=== PATIENT | female | born 1995 | race Caucasian/White ===

== ENCOUNTER 2024-07-24 10:48 | Outpatient (CLI) | payer MEDICAID, SELFPAY ==
--- NOTE | 2024-07-24 11:00 | US_ITS ---
PROCEDURE: US TRANSVAGINAL CLINICAL INDICATION: IUD placement check COMPARISON: No exams were available for comparison FINDINGS: Transvaginal sonographic images of the pelvis were obtained. UTERUS: 7.4cm x 4.5cmx 4.0cm anteverted with a combined endometrial thickness of thin. There is an IUD within the uterine cavity in the correct position. LEFT OVARY: 2.2cmx1.6 cmx1.8cm with a volume of 3.4ml. There appears to be a collapsing corpus luteum in the left ovary measuring 1.5 cm x 0.9 cm x 1.5 cm. There are several smaller peripheral follicles. RIGHT OVARY: 2.2cmx 2.0cmx2.3cm with a volume of 5.2ml. There are multiple small peripheral follicles giving the ovary a polycystic appearance. Both ovaries are seen and appear normal. Doppler flow to both ovaries are seen. There is no fluid in the cul-de-sac. IMPRESSION: 1. Anteverted uterus normal in shape and size the endometrium is thin. There is an IUD within the uterine cavity in the correct position. 2. Both ovaries are seen and appear somewhat polycystic. The left ovary contains a corpus luteum. The right ovary has more peripheral follicles. 3. No fluid in the cul-de-sac. Dictated by: Samuel Land MD 07/24/2024 15:13 Samuel Land MD in OV 07/24/2024 15:13
== END 2024-07-24 23:59 | disposition home or self-care (01) ==
LOC: RAD 10:49
PROVIDERS: PCP Obstetrics & Gynecology; Visit Provider Obstetrics & Gynecology
DX: E28.2 Polycystic ovarian syndrome (principal); N83.01 Follicular cyst of right ovary; N83.12 Corpus luteum cyst of left ovary; Z30.430 Encounter for insertion of intrauterine contraceptive device
CPT/HCPCS: 76830